=== PATIENT | male | born 1990 | race Caucasian/White ===

== ENCOUNTER → 2025-05-16 09:30 | Outpatient (CLI) | payer SELFPAY ==
[2025-05-16 11:17] LABS: Urine N gonorrhoeae NOT DETECTED
[2025-05-16 11:21] LABS: Urine Chlamydia NOT DETECTED
== END ==
PROVIDERS: Visit Provider Chiropractor
DX: Z11.3 Encounter for screening for infections with a predominantly sexual mode of transmission (principal); R30.0 Dysuria
CPT/HCPCS: 87086; 87210; 87491; 87591